=== PATIENT | female | born 1955 | race Caucasian/White ===

== ENCOUNTER 2020-01-03 16:43 | Emergency (ER) | payer MEDICARE, MEDICAID, SELFPAY ==
[2020-01-03 16:48] VITALS: BP 168/88; PULSE 93; RESP 14; TEMP 36.7; O2SAT 94; BMI 37.0
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
--- NOTE | 2020-01-03 17:44 | PC.NURSE ---
Read and agree with triage assessment.
[2020-01-03 17:51] LABS: Add Urine Microscopic? NO; Bilirubin Urine Neg (Negative); Blood Urine Neg (Negative); Glucose Urine UA Norm (Normal); Ketones Urine Negative (Negative); Leukocyte Esterase Urine Negative (Negative); Nitrate Urine Negative (Negative); Protein Urine Neg (Negative); Urine Appearance Clear (CLEAR); Urine Color Yellow (Yellow); Urobilinogen Urine Norm (Negative); pH Urine 5 (5-7)
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
[2020-01-03 18:05] LABS: Basophils % 0.3 %; Eosinophils # 0.1 10^3/uL (0.0-0.8); Eosinophils % 0.9 %; Hematocrit 43.5 % (37.0-47.0); Hemoglobin 14.1 g/dL (11.5-15.3); Lymphocytes # 2.3 10^3/uL (0.8-4.8); Lymphocytes % 18.4 %; Mean Corpuscular HGB Conc 32.4 g/dL (30.0-36.0); Mean Corpuscular Hemoglobin 29.6 pg (28.0-34.0); Mean Corpuscular Volume 91.4 fL (81-99); Mean Platelet Volume 9.6 fL (7.4-10.4); Monocytes # 0.6 10^3/uL (0.2-0.9); Monocytes % 4.5 %; Neutrophils # 9.45 10^3/uL (1.8-7.7); Neutrophils % 75.6 %; Nucleated Red Blood Cells % 0 %; Platelet Count 353 10^3/cmm (130-400); Red Blood Count 4.76 10^6/uL (4.1-5.3); Red Cell Distribution Width 13.2 % (12.1-15.1); White Blood Count 12.5 10^3/uL (4.0-10.0)
[2020-01-03 18:25] LABS: Alanine Aminotransferase 15 U/L (0-33); Albumin Level 4.4 g/dL (3.5-5.2); Alkaline Phosphatase 72 IU/L (35-105); Anion Gap 15.8 (5-19); Aspartate Amino Transferase 14 U/L (0-32); Blood Urea Nitrogen 23 mg/dL (8-23); Calcium 9.3 mg/dL (8.5-10.5); Carbon Dioxide 24 mmol/L (22-29); Chloride 104 mmol/L (98-107); Globulin 3.3 g/dL (1.3-4.6); Glucose 154 mg/dL (65-115); Osmolality Calculated 297 mOsm/kg (285-295); Potassium 3.8 mmol/L (3.5-5.1); Sodium 140 mmol/L (136-145); Total Bilirubin 0.3 mg/dL (0.15-1.2); Total Protein 7.7 g/dL (6.6-8.7)
[2020-01-03] MEDS: ceFAZolin 1,000 MG in sodium chloride 0.9% (plus) 50 ML 100 MG IV (18:49)
[2020-01-03] MEDS: tetanus-dipt-pertussis 0.5 mL SDV IM (18:50)
[2020-01-03] MEDS: ondansetron 2 mg/ML SDV 2 mL 4 MG IVP (20:07)
[2020-01-03] MEDS: morphine 4 mg/mL SDV 1 mL IVP (20:07)
[2020-01-03 20:40] VITALS: BP 123/87; PULSE 87; RESP 16; O2SAT 98
== END 2020-01-03 20:41 | disposition home or self-care (01) ==
PROVIDERS: Family Medicine; Emergency Provider Emergency Medicine; PCP Family Medicine
DX: S80.01XA Contusion of right knee, initial encounter (principal); S06.0X0A Concussion without loss of consciousness, initial encounter; S13.4XXA Sprain of ligaments of cervical spine, initial encounter; S60.512A Abrasion of left hand, initial encounter; S63.502A Unspecified sprain of left wrist, initial encounter; S66.912A Strain of unspecified muscle, fascia and tendon at wrist and hand level, left hand, initial encounter; I25.10 Atherosclerotic heart disease of native coronary artery without angina pectoris; E11.9 Type 2 diabetes mellitus without complications; I10 Essential (primary) hypertension; V89.2XXA Person injured in unspecified motor-vehicle accident, traffic, initial encounter; Z23 Encounter for immunization
CPT/HCPCS: 12345; 36415; 70450; 71045; 72125; 73110; 73130; 73562; 80053; 81003; 85025; 90715; 96365; 96375; 99282; 99284; J0690; J2270; J2405